=== PATIENT | male | born 2000 | race Caucasian/White ===

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

== ENCOUNTER 2023-04-18 14:04 | Emergency (ER) | payer MEDICAID ==
[~2023-04-18] VITALS: Ht 177.8 cm; Wt 79.4 kg
[2023-04-18 14:30] VITALS: BP_SYST 145; PULSE 100; RESP 18; TEMP 97; O2SAT 97
[2023-04-18] MEDS ORDERED: PANTOPRAZOLE SODIUM 40 MG/VIAL (PROTONIX) IVP ONE (15:00)
[2023-04-18] MEDS ORDERED: HALOPERIDOL LACTATE 5 MG/ML VIAL IVP ONE (15:00)
[2023-04-18] MEDS ORDERED: ONDANSETRON HCL 4 MG/2 ML VIAL IVP ONE (15:00)
[2023-04-18] MEDS ORDERED: NACL 0.9% 1,000 ML IV ONE (15:00)
[2023-04-18 16:40] LABS: BASOPHILS % (AUTO) 0.1 % (0.0-2.0); HEMOGLOBIN 15.4 g/dL (14.0-18.0); LYMPHOCYTES # (AUTO) 1.5 K/uL (1.0-5.5); MEAN CORPUSCULAR HEMOGLOBIN 27 pg (27-31); MONOCYTES # (AUTO) 0.6 K/uL (0.0-1.0)
[2023-04-18] MEDS ORDERED: LORazepam 2 MG/ML VIAL IVP ONE (16:45)
[2023-04-18 16:51] LABS: HEMATOCRIT 47.6 % (36-54); MEAN CORPUSCULAR HGB CONC 32 % (32-36); MEAN CORPUSCULAR VOLUME 84 fL (79.0-98.0); RED BLOOD CELL COUNT(AUTO) 5.66 MIL/uL (4.2-6.2); RED CELL DISTRIBUTION WIDTH 13.6 % (9.0-15.0)
[2023-04-18 16:52] LABS: EOSINOPHILS % (AUTO) 0.4 % (0.0-4.0); MONOCYTES % (AUTO) 7.2 % (1.7-9.3); NEUTROPHILS % (AUTO) 73.3 % (40.0-70.0); PLATELET COUNT (AUTO) 236 K/uL (130-430)
[2023-04-18 16:53] LABS: NEUTROPHILS # (AUTO) 5.9 K/uL (1.8-7.7)
[2023-04-18 17:08] LABS: ALBUMIN 4.4 g/dL (3.4-4.8); CALCIUM 9.6 mg/dL (8.4-11.0); CREATININE 1.14 mg/dL (0.55-1.30); POTASSIUM 3.4 mmol/L (3.5-5.1); TOTAL BILIRUBIN 0.7 mg/dL (0.0-1.0); TOTAL PROTEIN, SERUM 7.4 g/dL (6.4-8.3)
[2023-04-18] MEDS ORDERED: ONDA-8 TL (17:44)
[2023-04-18] MEDS ORDERED: LORA-258 PO (17:44)
[2023-04-18 18:00] VITALS: BP_SYST 134; PULSE 84; RESP 15; TEMP 98.8; O2SAT 100
== END 2023-04-18 18:00 | disposition home or self-care (01) ==
LOC: SED 14:04
DX: R11.15 Cyclical vomiting syndrome unrelated to migraine (principal); R10.84 Generalized abdominal pain; F17.200 Nicotine dependence, unspecified, uncomplicated; F12.90 Cannabis use, unspecified, uncomplicated; Z79.899 Other long term (current) drug therapy
CPT/HCPCS: 99284; 96374; 96375; 96361; 80053; 83690; 85025; 36415; J1630; J2060; J2405; C9113; J7030

== ENCOUNTER 2023-11-11 19:54 | Emergency (ER) | payer MEDICAID ==
[~2023-11-11] VITALS: Ht 177.8 cm; Wt 77.1 kg
[~2023-11-11 19:54] MED LIST: LORA-258 PO; ONDA-8 TL
[2023-11-11 20:24] VITALS: BP_SYST 144; PULSE 78; RESP 20; TEMP 99.6; O2SAT 100
[2023-11-11 21:07] LABS: BASOPHILS % (AUTO) 0.4 % (0.0-2.0); EOSINOPHILS % (AUTO) 0.1 % (0.0-4.0); HEMATOCRIT 48.7 % (36-54); HEMOGLOBIN 16.5 g/dL (14.0-18.0); LYMPHOCYTES # (AUTO) 1.4 K/uL (1.0-5.5); LYMPHOCYTES % (AUTO) 13.9 % (20.5-51.5); MEAN CORPUSCULAR HEMOGLOBIN 28 pg (27-31); MEAN CORPUSCULAR HGB CONC 34 % (32-36); MEAN CORPUSCULAR VOLUME 83 fL (79.0-98.0); MONOCYTES # (AUTO) 0.5 K/uL (0.0-1.0); MONOCYTES % (AUTO) 4.4 % (1.7-9.3); NEUTROPHILS # (AUTO) 8.4 K/uL (1.8-7.7); NEUTROPHILS % (AUTO) 81.2 % (40.0-70.0); PLATELET COUNT (AUTO) 297 K/uL (130-430); RED BLOOD CELL COUNT(AUTO) 5.85 MIL/uL (4.2-6.2); RED CELL DISTRIBUTION WIDTH 13.6 % (9.0-15.0); WHITE BLOOD COUNT (AUTO) 10.3 K/uL (4.8-10.8)
[2023-11-11 21:31] LABS: ALBUMIN 4.8 g/dL (3.4-4.8); CALCIUM 9.8 mg/dL (8.4-11.0); CREATININE 1.24 mg/dL (0.55-1.30); POTASSIUM 3.8 mmol/L (3.5-5.1); TOTAL BILIRUBIN 0.9 mg/dL (0.0-1.0); TOTAL PROTEIN, SERUM 8.2 g/dL (6.4-8.3)
== END 2023-11-11 22:30 | disposition left against medical advice (07) ==
LOC: SED 19:54
DX: R10.13 Epigastric pain (principal); R11.2 Nausea with vomiting, unspecified; R19.7 Diarrhea, unspecified; Z53.21 Procedure and treatment not carried out due to patient leaving prior to being seen by health care provider
CPT/HCPCS: 36415; 80048; 80053; 85025